=== PATIENT | female | born 1995 | race Caucasian/White ===

== ENCOUNTER 2020-07-17 06:06 | Inpatient (IN) | payer OTHER, SELFPAY ==
[2020-07-17] VITALS (81 sets, daily range): BP systolic 109–138; BP diastolic 55–113; PULSE 63–100; RESP 16; TEMP 36.7–37.2; O2SAT 98–100
--- NOTE | 2020-07-17 06:06 | LDADM ---
This patient, Josseline Loza, was admitted to Labor/Delivery/Recovery 104 on 07/17/20 at 06:06. Plans for labor, pain management and were discussed with patient. Patient/family oriented to hospital policies and general routines including ID bracelet, bed and alarms, visiting hours, pain management, procedures, bathroom and other care routines, personal items, smoking policy, room service/diet and guest tray routines, security routines, and visiting hours. Patient/Family are encouraged to report perceived risks to care and to ask questions if they do not understand what they are told or what they should do. See OBIX for further documentation.
[2020-07-17 07:27] LABS: Basophils Percent Auto 0.2 % (0.2-1.2); Eosinophils Absolute Auto 0.1 K/mm3 (0-0.3); Eosinophils Percent Auto 0.7 % (0-4.4); Hematocrit 31.6 % (37.0-47.0); Immature Granulocyte Absolute 0.07 K/mm3 (0.00-0.031); Immature Granulocyte Percent A 0.6 % (0-0.5); Lymphocytes Absolute Auto 1.81 K/mm3 (0.9-3.2); Lymphocytes Percent Auto 14.2 % (18.3-44.2); Mean Corpuscular HGB Conc 34.8 g/dl (32-36); Mean Corpuscular Hemoglobin 31.3 pg (26-34); Mean Platelet Volume 10.4 fl (7.4-10.4); Monocytes Absolute Auto 0.7 K/mm3 (0.1-0.6); Monocytes Percent Auto 5.4 % (2.6-8.5); Neutrophils Percent Auto 78.9 % (45.5-73.1); Platelet Count Result 261 k/mm3 (150-375); Red Blood Count 3.51 M/mm3 (4.2-5.4); Red Cell Distribution Width 14.8 % (11.5-14.5); White Blood Count 12.7 K/mm3 (4.5-10.0)
[2020-07-17] MEDS: LACTATED RINGERS 1,000 ML 125 ML IV CONT ×2 (07:30→08:00)
--- NOTE | 2020-07-17 08:16 | P.PNAN_ITS ---
Anes - Initial Pre Proc Eval Date/Time: 07/17/20 08:16 Surgeon: Mena Sheikh MD Pre Op Diagnosis: Contractions Patient Data Age: 24 Gender: F Height: Weight: Last Vital Signs Pulse 82 07/17/20 08:15 BP 111/76 07/17/20 08:15 Pulse Ox 99 07/17/20 08:13 Allergies Allergy/AdvReac Type Severity Reaction Status Date / Time No Known Allergies Allergy Verified 06/22/20 15:28 Home Medications Medication Instructions Recorded Confirmed Type ferrous sulfate 143 mg PO DAILY 06/22/20 07/17/20 History prenat.vits,messi,vnt-jnpu-kjmag 1 tablet PO DAILY 06/22/20 07/17/20 History [ #2] Laboratory Tests 07/17/20 07/17/20 07:17 07:17 WBC 12.7 K/mm3 H K/mm3 (4.5-10.0) RBC 3.51 M/mm3 L M/mm3 (4.2-5.4) Hgb 11.0 g/dL L g/dL (12.0-15.0) Hct 31.6 % L % (37.0-47.0) MCV 90.0 fl fl (80-100) MCH 31.3 pg pg (26-34) MCHC 34.8 g/dl g/dl (32-36) RDW 14.8 % H % (11.5-14.5) Plt Count 261 k/mm3 k/mm3 (150-375) MPV 10.4 fl fl (7.4-10.4) Immature Gran % (Auto) 0.6 % H % (0-0.5) Neut % (Auto) 78.9 % H % (45.5-73.1) Lymph % (Auto) 14.2 % L % (18.3-44.2) [place] % (Auto) 5.4 % % (2.6-8.5) Eos % (Auto) 0.7 % % (0-4.4) Baso % (Auto) 0.2 % % (0.2-1.2) Lymph # (Auto) 1.81 K/mm3 K/mm3 (0.9-3.2) [place] # (Auto) 0.7 K/mm3 H K/mm3 (0.1-0.6) Eos # (Auto) 0.1 K/mm3 K/mm3 (0-0.3) Baso # (Auto) 0.0 K/mm3 K/mm3 (0.0-0.1) Abs Immat Gran (auto) 0.07 K/mm3 H K/mm3 (0.00-0.031) Absolute Neuts (auto) 10.0 K/mm3 H K/mm3 (1.3-6.7) Absolute Nucleated RBC 0.0 K/mm3 K/mm3 (0.0-0.012) Nucleated RBC % 0.0 % % (0.0-0.2) RPR Pending Patient hx anesthesia problems: none Family hx anesthesia problems: none PMFSH Family History Family History Father Lung cancer Grandparent Cancer Sibling Skin cancer (melanoma) Social History Social History Smoking status: Never smoker Second hand tobacco smoke exposure: No Substance use: never Spiritual care concerns: No Anes - Eval Final PreProcedure Day of Procedure 07/17/20 08:16 Patient weight: overweight Neurological: alert and oriented ASA classification: II Emergent: no Anesthetic plan: proceed Anesthesia type and monitoring: regional epidural and standard monitoring Informed Consent: The patient's anesthetic plan and its attendant risks and benefits were discussed with the patient/family/POA. Questions were solicited and answers provided to the satisfaction of the patient/family/POA.
--- NOTE | 2020-07-17 08:44 | WPDOBADMIT ---
Obstetrics - Admit Note Admission Note: record reviewed. No pertinent additions to the history and/or any subsequent changes in the physical findings that are not consistent with the expected course of the were found. Pt here in active labor sve /-2, AROM large amount of clear, odorless fluid Additions to the history and/or subsequent changes in the physical findings follow. None.
[2020-07-17 09:42] LABS: Amphetamine Screen Urine Negative (Negative); Barbiturate Screen Urine Negative (Negative); Benzodiazepines Screen Urine Negative (Negative); Cannabinoid Screen Urine Positive (Negative); Cocaine Screen Urine Negative (Negative); Methadone Screen Urine Negative (Negative); Opiate Screen Urine Negative (Negative); Phencyclidine Screen Urine Negative (Negative)
[2020-07-17] MEDS: OXYTOCIN 30 UNITS/NS 500 ML 30 UNITS/500 ML BAG 999 UNITS IV CONT (11:21)
--- NOTE | 2020-07-17 11:29 | PM.OBPRVD ---
OB - Delivery Note Procedure Delivery date: 07/17/20 Procedure: vaginal delivery Intrapartal events: None Induction method: none Delivery augmentation: rupture of membranes Delivery monitor: external FHT and external uterine Route of delivery: Episiotomy description: None Laceration Description: Perineal - 1st Degree Delivery repair: vicryl Specimen: No Quantitative Blood Loss (ml): 114 Anesthesia type: Epidural Disposition: other () Baby Date of : 07/17/20 Time of : 11:16 Weeks of gestation at delivery: 39 gender: Female Weight (pounds): 7 Weight (ounces): 11 presentation: vertex position: Right Occiput Anterior Placenta delivery description: Spontaneous cord vessel description: 3 Vessels and Clamped/Cut score one minute: 8 score five minutes: 9
[2020-07-17] MEDS: OXYTOCIN 30 UNITS/NS 500 ML 30 UNITS/500 ML BAG 125 UNITS IV CONT (11:56)
[2020-07-17] MEDS: IBUPROFEN 600 MG TABLET PO ×2 (13:42→21:40)
[2020-07-17] MEDS: WITCH HAZEL 40 PADS 1 PAD TOPICAL (13:43)
[2020-07-17] MEDS: BENZOCAINE 20% AER SPR (*SP) 56 GM CAN 1 SPRAY TOPICAL (13:43)
--- NOTE | 2020-07-17 14:59 | PC.NURSE ---
Patient transferred to post room #286 via wheelchair . Support person present. Oriented to unit, room, information board, rooming in, admission packet and security measures. Baby and FOB with mom. Patient verbalizes understanding.
[2020-07-18 04:09] LABS: Hematocrit 29.3 % (37.0-47.0); Hemoglobin 9.9 g/dL (12.0-15.0)
[2020-07-18] MEDS: IBUPROFEN 600 MG TABLET PO ×2 (05:43→11:24)
[2020-07-18] MEDS: BENZOCAINE 20% AER SPR (*SP) 56 GM CAN 1 SPRAY TOPICAL (07:49)
[2020-07-18] MEDS: POLYSACCHARIDE IRON COMPLEX 150 MG CAPSULE PO (07:49)
[2020-07-18] MEDS: DOCUSATE SODIUM 100 MG CAPSULE PO (07:49)
[2020-07-18] MEDS: WITCH HAZEL 40 PADS 1 PAD TOPICAL (07:49)
[2020-07-18 07:55] VITALS: BP 108/65; PULSE 75; RESP 18; TEMP 36.3
--- NOTE | 2020-07-18 08:31 | WPDANLDPN2 ---
Anes-Prog Note L&D Date/Time: 07/18/20 08:31 Comfortable throughout: labor and delivery Neuraxial method: epidural Epidural/Spinal procedure site: clean & non-tender Neuro status: Neuro function grossly intact. Cardiovascular status: normal Respiratory status: normal Airway patency: baseline Mental status: baseline Post-Op hydration status: normal Vital Signs: Last Vital Signs Temp 36.3 C L 07/18/20 07:55 Pulse 75 07/18/20 07:55 Resp 18 07/18/20 07:55 BP 108/65 07/18/20 07:55 Pulse Ox 100 07/17/20 10:58 Pain score (VAS): 0/10. Patient resting in bed at time of assessment, appears comfortable. Support person and RN at bedside at time of assessment. I/O: Intake & Output 07/17/20 07/18/20 07/18/20 23:59 07:59 15:59 Output Total 500 Balance -500 Post-procedural complaints: none Patient feedback: Patient satisfied with anesthetic care.
--- NOTE | 2020-07-18 10:10 | PM.OBPNVD ---
OB - PN: Subj Subjective Date/time seen: 07/18/20 10:10 Patient comments: no complaints baby status: doing well [place] feeding status: exclusively breast feeding OB - PN: Obj Data Labs CBC & Chem 7: 07/18/20 03:58 Labs: Laboratory Results - last 24 hr 07/18/20 03:58 Hgb 9.9 L Hct 29.3 L OB - PN A/P Plan day: 1 Plan: routine care and discharge home Time Spent With Patient Time: Total time spent is greater than 50% in coordination of care (as documented) at patient's floor/unit and/or counseling patient: Review of Systems Review of Systems: All systems reviewed & are unremarkable except as noted in HPI and below Exam Const: General: cooperative Orientation/consciousness: patient oriented x3 Psych: Attitude: cooperative Thought process: Normal thought process present Thought content: Yes Normal thought content present Insight: Good insight present (Psych) Judgement: Good judgement present (Psych)
--- NOTE | 2020-07-18 10:15 | P.DS_ITS ---
DS: Admitting Diagnosis Admitting Diagnosis Admitting Diagnosis: labor OB - DS: Summary OB Procedures : None OB Procedures Intrapartum: Spontaneous Vag Delivery OB Procedures: : None Time Spent with Patient Time attestation: Total time spent providing and/or coordinating discharge services: DS: Data Data Completed and Pending Labs on day of discharge: Labs from last 24 hours 07/18/20 03:58 Hgb 9.9 L Hct 29.3 L Discharge Plan Discharge Attending physician on discharge: Mena Sheikh Discharging Clinician: Carole Brooks Patient Disposition: Home, Self-Care Activity: pelvic rest Diet: regular Patient Instructions: Antibiotic Form Stand Alone Forms: General Discharge Information Follow-up/Referrals: Carole Brooks, [facility] [Certified Nurse [employer] Operator] - 4 Weeks Discharge Medications: Continued #2 Tablet 1 tablet PO DAILY RF: 0 ferrous sulfate 143 mg (45 mg iron) Tablet Extended Release 143 mg PO DAILY RF: 0 Date of admission: 07/17/20 06:06 Primary Care Provider: Sherry Rondon Admitting Provider: Mena Sheikh Attending physician on admission: Mena Sheikh Condition: Stable
--- NOTE | 2020-07-18 14:40 | PCCCNOTE ---
Care Coordination. Pt. referred to CC for positive UDS for marijuana. Met with pt. and FOB at bedside. Pt. reports this is her second baby. Pt. and baby will return home with FOB and 2 year old son. Pt. reports having support from both of their immediate families, who are available and very supportive. Pt. reports they have all necessary supplies; CC provided a list of resources in the community to pt. to take home with her if she ever needed anything. Pt. reports she is not set up with [employer] or food stamps due to her and FOB making too much money to qualify. Pt. denies any previous involvement with [facility]. Pt. reports using marijuana to help with her anxiety and denies the need for substance abuse resources. Filed a report to [facility] with Kelsey Savage ID#[id number].
[2020-07-19 09:29] VITALS: BP 128/77; PULSE 78; RESP 20; TEMP 36.7; O2SAT 100
[2020-07-19 13:02] LABS: Rapid Plasma Reagin Non-Reactive (NonReactive)
== END 2020-07-18 12:45 | disposition home or self-care (01) | DRG 807 ==
LOC: ANHLDR 06:47 → ANHOB2 14:18
PROVIDERS: Advanced Practice Midwife; Admitting Provider Obstetrics & Gynecology; PCP Advanced Practice Midwife; Visit Provider Obstetrics & Gynecology
DX: O70.0 First degree perineal laceration during delivery (principal); Z37.0 Single live birth; Z3A.39 39 weeks gestation of pregnancy
CPT/HCPCS: 36415; 80307; 85014; 85018; 85025; 86592; 86850; 86900; 86901; A9270; J2590; J2795; J7120